=== PATIENT | female | born 1950 | race Caucasian/White ===

== ENCOUNTER 2017-06-01 10:35 | Outpatient (CLI) | payer MEDICARE, BC | END 2017-06-01 10:36 | disposition home or self-care (01) | LOC: BICMAMMO 10:35 | PROVIDERS: ATTEND Family Medicine | DX: Z12.31 Encounter for screening mammogram for malignant neoplasm of breast (principal); Z80.3 Family history of malignant neoplasm of breast | CPT/HCPCS: 77063; 77067 ==

== ENCOUNTER 2018-06-02 12:08 | Outpatient (CLI) | payer MEDICARE, BC ==
--- NOTE | 2018-06-02 15:35 | MMO ---
Bilateral MAMMO Bilat Screen [facility]LLIE. CLINICAL HISTORY: Patient is 67 years old and is seen for screening. The patient has the following family history of breast cancer: maternal aunt. The patient has no personal history of cancer. VIEWS: The views performed were: bilateral craniocaudal with tomosynthesis and bilateral mediolateral oblique with tomosynthesis. FILMS COMPARED: The present examination has been compared to prior imaging studies performed at [facility] on 10/16/2000, 10/20/2001, 10/21/2002, 10/23/2003, 10/29/2004, 11/04/2005, 11/05/2006, 11/10/2007, 11/10/2008, 11/14/2009, 11/27/2010, 12/01/2011, 12/01/2012, 02/11/2016 and 06/01/2017. MAMMOGRAM FINDINGS: There are scattered fibroglandular densities. Finding 1: There are vascular calcifications seen in both breasts. Finding 2: There are benign appearing calcifications seen in both breasts. There are no suspicious masses, calcifications or areas of architectural distortion. IMPRESSION: ALL ABOVE FINDINGS ARE BENIGN. A ROUTINE FOLLOW-UP MAMMOGRAM IN 1 YEAR IS RECOMMENDED. THE RESULTS OF THIS EXAM WERE SENT TO THE PATIENT. ACR BI-RADS Category 2 - Benign finding MAMMOGRAPHY NOTE: 1. A negative mammogram report should not delay a biopsy if a dominant of clinically suspicious mass is present. 2. Approximately 10% to 15% of breast cancers are not detected by mammography. 3. Adenosis and dense breasts may obscure an underlying neoplasm.
== END 2018-06-02 12:09 | disposition home or self-care (01) ==
LOC: BICMAMMO 12:08
PROVIDERS: ATTEND Family Medicine
DX: Z12.31 Encounter for screening mammogram for malignant neoplasm of breast (principal); Z80.3 Family history of malignant neoplasm of breast
CPT/HCPCS: 77063; 77067

== ENCOUNTER 2018-12-14 12:24 | Day surgery (SDC) | payer MEDICARE, BC ==
[2018-12-14] MEDS ORDERED: Sodium Bicarbonate 2.5 MEQ/5 ML VIAL ONE (12:58)
[2018-12-14] MEDS ORDERED: Lidocaine 1% PF 5 ML VIAL ONE (13:43)
--- NOTE | 2018-12-14 14:47 | ULT ---
Ultrasound-guided thyroid fine-needle aspiration: 12/14/2018 HISTORY: Dominant solid nodule within the inferior aspect of the left lobe FINDINGS: Informed consent obtained prior to the procedure. Preprocedural imaging demonstrates a hete rogeneous solid 1.6 x 1.3 x 1.5 cm nodule within the inferior aspect of the left lobe. Skin overlying the nodule was prepped and draped in normal sterile fashion and anesthetized with 1% b uffered lidocaine. With direct sonographic guidance, 4 fine-needle aspirations were obtained of the nodule. Obtained asp irates were given to the pathology personnel at the bedside. The patient tolerated the procedure well. IMPRESSION: Successful fine-needle aspiration of left thyroid nodule as above.
== END 2018-12-14 14:10 | disposition home or self-care (01) ==
LOC: ULT 12:24
PROVIDERS: ATTEND Specialist
DX: E04.1 Nontoxic single thyroid nodule (principal); I10 Essential (primary) hypertension; E11.9 Type 2 diabetes mellitus without complications; F41.9 Anxiety disorder, unspecified; F32.9 Major depressive disorder, single episode, unspecified; E78.5 Hyperlipidemia, unspecified; Z79.82 Long term (current) use of aspirin; Z79.84 Long term (current) use of oral hypoglycemic drugs; Z79.899 Other long term (current) drug therapy; Z86.73 Personal history of transient ischemic attack (TIA), and cerebral infarction without residual deficits; Z88.1 Allergy status to other antibiotic agents; Z91.048 Other nonmedicinal substance allergy status
CPT/HCPCS: 60100; 76942; 88173; J2001

== ENCOUNTER 2019-06-09 14:06 | Outpatient (CLI) | payer MEDICARE, BC ==
--- NOTE | 2019-06-09 15:06 | MMO ---
Bilateral MAMMO Bilat Screen [facility]. CLINICAL HISTORY: Patient is 68 years old and is seen for screening. The patient has the following family history of breast cancer: maternal aunt. The patient has no personal history of cancer. VIEWS: The views performed were: bilateral craniocaudal with tomosynthesis and bilateral mediolateral oblique with tomosynthesis. FILMS COMPARED: The present examination has been compared to prior imaging studies performed at [facility] on 02/11/2016, 06/01/2017 and 06/02/2018. This study has been interpreted with the assistance of computer-aided detection. MAMMOGRAM FINDINGS: There are scattered fibroglandular densities. Benign calcifications are noted bilaterally. There is a new nodular density in the right upper inner breast In the left breast, there are no suspicious masses, calcifications or areas of architectural distortion. IMPRESSION: FINDING IN THE RIGHT BREAST REQUIRES ADDITIONAL EVALUATION. SPOT COMPRESSION IS RECOMMENDED. AN ULTRASOUND EXAM IS RECOMMENDED. ADDITIONAL IMAGING. THE RESULTS OF THIS EXAM WERE SENT TO THE PATIENT. ACR BI-RADS Category 0 - Incomplete: Need additional imaging evaluation. [facility] will notify the patient of the need for additional imaging services. MAMMOGRAPHY NOTE: 1. A negative mammogram report should not delay a biopsy if a dominant of clinically suspicious mass is present. 2. Approximately 10% to 15% of breast cancers are not detected by mammography. 3. Adenosis and dense breasts may obscure an underlying neoplasm. Reported by: PARAG JENNINGS MD Electonically Signed: [id number]
== END 2019-06-09 14:07 | disposition home or self-care (01) ==
LOC: BICMAMMO 14:06
PROVIDERS: ATTEND Family Medicine
DX: Z12.31 Encounter for screening mammogram for malignant neoplasm of breast (principal); Z80.3 Family history of malignant neoplasm of breast
CPT/HCPCS: 77063; 77067

== ENCOUNTER 2019-06-13 10:05 | Outpatient (CLI) | payer MEDICARE, BC ==
--- NOTE | 2019-06-13 11:25 | MMO ---
Right Breast MAMMO Unilat Diag [facility]DI RT+ELLIE. CLINICAL HISTORY: Patient is 68 years old and is seen for diagnostic exam. The patient has the following family history of breast cancer: maternal aunt. The patient has no personal history of cancer. VIEWS: The views performed were: right craniocaudal with tomosynthesis; right mediolateral oblique with tomosynthesis; and right mediolateral with tomosynthesis. FILMS COMPARED: The present examination has been compared to prior imaging studies performed at [facility] on 06/01/2017, 06/02/2018, 06/09/2019 and 06/13/2019. This study has been interpreted with the assistance of computer-aided detection. MAMMOGRAM FINDINGS: There are scattered fibroglandular densities. Finding 1: There is an irregular mass measuring 6 millimeters seen in the middle region of the right breast at 12 o'clock. Finding 2: There is an irregular mass measuring 5 millimeters seen in the right breast at 1 o'clock. IMPRESSION: FINDING 1: MASS IN THE MIDDLE REGION OF THE RIGHT BREAST AT 12 O'CLOCK IS SUSPICIOUS. BIOPSY IS RECOMMENDED. FINDING 2: MASS IN THE RIGHT BREAST AT 1 O'CLOCK IS SUSPICIOUS. BIOPSY IS RECOMMENDED. THE RESULTS OF THIS EXAM WERE SENT TO THE PATIENT. ACR BI-RADS Category 4 - Suspicious abnormality - biopsy should be considered MAMMOGRAPHY NOTE: 1. A negative mammogram report should not delay a biopsy if a dominant of clinically suspicious mass is present. 2. Approximately 10% to 15% of breast cancers are not detected by mammography. 3. Adenosis and dense breasts may obscure an underlying neoplasm. Reported by: Valencia GONZALEZ Electonically Signed: [id number]
--- NOTE | 2019-06-13 12:37 | ULT ---
RIGHT BREAST ULTRASOUND: HISTORY: Abnormal mammogram. COMPARISON: Mammogram of 06/12/2019. FINDINGS: At the right breast 11-12 o'clock are 2 separate masses. These masses are hypoechoic without signifi cant posterior acoustic properties. These are 5-6 mm in size with some angular margins. IMPRESSION: 1. BIRADS category 4 - suspicious. Two small right breast masses 5-7 mm at 11-12 o'clock within 2 c m of each other are suspicious for malignancy. Ultrasound biopsy of both these masses is recommended . 2. The right axilla was imaged without abnormality. Findings were discussed with the patient's daughter. Also, a Stanley text was sent to the ordering pro vider. The nurse navigator was notified. CODE CR
--- NOTE | 2019-06-17 13:46 | MMO ---
Right Breast MAMMO Unilat Diag DDI RT. CLINICAL HISTORY: Patient is 68 years old and is seen for diagnostic exam. VIEWS: The views performed were: . FILMS COMPARED: The present examination has been compared to prior imaging studies performed at [facility] on 06/02/2018, 06/09/2019 and 06/13/2019. This study has been interpreted with the assistance of computer-aided detection. MAMMOGRAM FINDINGS: There are scattered fibroglandular densities. There are two nodules with associated biopsy clip seen in the right breast. IMPRESSION: NODULES IN THE RIGHT BREAST ARE CONFIRMED UTILIZING POST PROCEDURE MAMMOGRAM. THE RESULTS OF THIS EXAM WERE SENT TO THE PATIENT. MAMMOGRAPHY NOTE: 1. A negative mammogram report should not delay a biopsy if a dominant of clinically suspicious mass is present. 2. Approximately 10% to 15% of breast cancers are not detected by mammography. 3. Adenosis and dense breasts may obscure an underlying neoplasm. Reported by: CORBIN CERDA MD Electonically Signed: [id number]
== END 2019-06-13 10:06 | disposition home or self-care (01) ==
LOC: BICMAMMO 10:05
PROVIDERS: ATTEND Family Medicine
DX: N63.15 Unspecified lump in the right breast, overlapping quadrants (principal)
CPT/HCPCS: 76642; 77065; G0279

== ENCOUNTER → 2019-06-17 | Day surgery (SDC) | payer MEDICARE, BC ==
--- NOTE | 2019-06-17 15:21 | ULT ---
SONOGRAPHIC GUIDED BIOPSY RIGHT BREAST MASSES X2: 06/17/19 HISTORY: Multiple right breast masses at the superior lateral quadrant. 11 o'clock position. FINDINGS: After explaining the procedure and obtaining informed consent, the two adjacent hypoechoic masses at the superolateral aspect of the right breast were visualized. Sterile technique, buffered local anest hesia, sonographic guidance, and a lateral approach were used to carefully advance a 14 gauge biopsy needle to the more anterior and superficial hypoechoic mass. A total of two specimens were obtained. Localization clip is placed in the biopsy bed. Specimens were carefully marked as the #1 biopsy, ante rior lesion. Attention was then directed to the deeper and more posterior mass. 14 gauge needle was used to obtain two specimens. Localization clip was placed in the biopsy bed. Tissue was carefully labeled as #2 mo re posterior lesion. The patient tolerated the procedure well and was eventually dismissed in good condition. IMPRESSION: Technically successful sonographic guided biopsy of two separate right breast masses. Pathology is pe nding. POS: TPC
== END ==
LOC: BICULT 12:38
PROVIDERS: ATTEND Family Medicine
PROC: 0H9T3ZX Drainage of Right Breast, Percutaneous Approach, Diagnostic (ICD-10-PCS; principal; 2019-06-17)
DX: C50.411 Malignant neoplasm of upper-outer quadrant of right female breast (principal); Z17.1 Estrogen receptor negative status [ER-]; Z88.1 Allergy status to other antibiotic agents; Z91.048 Other nonmedicinal substance allergy status
CPT/HCPCS: 19083; 19084; 88305; 88361

== ENCOUNTER 2019-06-24 13:36 | Outpatient (CLI) | payer MEDICARE, BC ==
[2019-06-24 15:19] LABS: #Eosinphils 0.4 thou/uL (0.0-0.7); #Monocytes 0.5 thou/uL (0.11-0.59); #Neutrophils 5.5 thou/uL (1.40-6.50); %Basophils 0.6 % (0.0-1.0); %Lymphocytes 13.4 % (21.0-51.0); %Monocytes 6.5 % (0.0-10.0); %Neutrophils 73.5 % (42.0-75.0); Hemoglobin 11.6 g/dL (12.0-16.0); Mean Corpuscular HGB CONC 31.6 g/dL (32.0-36.0); Mean Corpuscular Hemoglobin 26.3 pg (27.0-31.0); Mean Corpuscular Volume 83.2 fL (78.0-98.0); Mean Platelet Volume 8.9 fL (7.4-10.4); Platelet Count 229 thou/uL (130-400); RBC Distribution Width 15.6 % (11.5-14.5); Red Blood Cell (RBC) Count 4.43 mill/uL (4.20-5.40); White Blood Cell (WBC) Count 7.5 thou/uL (4.8-10.8)
[2019-06-24 15:36] LABS: Anion Gap 15 mmol/L (10-20); BUN (Urea Nitrogen) 41 mg/dL (9.8-20.1); Calc. Creatinine Clearance 0 mL/min (70-130); Carbon Dioxide 23 mmol/L (23-31); Chloride 106 mmol/L (98-107); Estimated GFR-MDRD 43; Glucose 212 mg/dL (80-115); Potassium 5.6 mmol/L (3.5-5.1); Sodium 138 mmol/L (136-145)
--- NOTE | 2019-06-24 15:51 | RAD ---
CHEST 2 VIEWS: HISTORY: Preoperative evaluation. FINDINGS: Heart size is minimally enlarged. Increased bronchovascular markings bilaterally. Small focus of li near density in the left costophrenic angle, evidence for some chronic change. No confluent pneumoni a, overt edema, or pleural effusion. IMPRESSION: No acute intrathoracic disease. Borderline to mild cardiomegaly. Atherosclerosis of the aorta. POS: RRE
== END 2019-06-24 13:37 | disposition home or self-care (01) ==
LOC: LABBT 13:36
PROVIDERS: ATTEND Specialist
DX: Z01.818 Encounter for other preprocedural examination (principal); C50.919 Malignant neoplasm of unspecified site of unspecified female breast
CPT/HCPCS: 71046; 80048; 85025; 93005; 93010

== ENCOUNTER 2019-06-27 07:11 | Observation (INO) | payer MEDICARE, BC ==
[2019-06-24 14:24] VITALS: BMI 27.7
[2019-06-27] MEDS ORDERED: Succinylcholine Chloride 20 MG/ML 10 ml SYRINGE FS ONE (09:01)
[2019-06-27] MEDS ORDERED: diphenhydrAMINE 50 MG/ML VIAL ONE (09:01)
[2019-06-27] MEDS ORDERED: Ondansetron PF 4 MG/2 ML Vial ONE (09:01)
[2019-06-27] MEDS ORDERED: PROPOFOL 200 MG/20 ML VIAL ONE (09:01)
[2019-06-27] MEDS ORDERED: Dexamethasone 20 MG/5 ML VIAL ONE (09:01)
[2019-06-27] MEDS ORDERED: EPHEDRINE 25 MG/5 ML SYRINGE ONE ×4 (09:01→15:02)
[2019-06-27] MEDS ORDERED: Isosulfan Blue 50 MG/5 ML VIAL ONE (12:05)
[2019-06-27] MEDS ORDERED: Fentanyl 250 MCG/5 ML VIAL ONE (12:11)
--- NOTE | 2019-06-27 12:26 | NM ---
Lymphoscintigraphy right breast HISTORY: Right breast cancer. FINDINGS: After explaining the procedure and answering all questions, the periareolar skin of the rig ht breast was cleansed. Sterile technique was used to carefully injected into the subdermal tissues in 4 equal aliquots a tot al of 1 cc containing 417 uCi technetium 99m filtered sulfur colloid at the periareolar 12:00, 3:00, 6:00, and 9:00 positions. Injection sites were carefully massaged to diffuse the liquid into th e tissues. Imaging was performed. Imaging carried out to 3 hours showed no focal areas of radiotracer uptake outside of the injection s ite, with particular attention paid to the axilla and middle chest. At the request of the surgeon, patient was sent for day surgery. IMPRESSION : Nonvisualization of sentinel lymph node right breast at lymphoscintigraphy imaging carried out to 3 h ours.
[2019-06-27] MEDS ORDERED: Ketorolac Tromethamine 30 MG/ML VIAL ONE (12:35)
[2019-06-27] MEDS ORDERED: EPINEPHRINE 1 MG/10 ML-NACL IV ONE (15:00)
[2019-06-27] MEDS ORDERED: Promethazine HCl 25 MG/ML VIAL SLOW IVP PRN (15:37)
[2019-06-27] MEDS ORDERED: Ondansetron HCl/PF 4 MG/2 ML Vial IVP PRN (15:37)
[2019-06-27] MEDS ORDERED: Fentanyl 100 MCG/2 ML VIAL ONE ×2 (15:48→16:31)
[2019-06-27] MEDS ORDERED: HYDROcodone/Acetaminophen 10/325 mg Tablet PO PRN (16:18)
[2019-06-27] MEDS ORDERED: Morphine 2 MG/ML SYRINGE SLOW IVP PRN (16:18)
[2019-06-27] MEDS ORDERED: Ondansetron PF 4 MG/2 ML Vial IVP PRN (16:18)
[2019-06-27] MEDS ORDERED: hydrALAZINE 20 MG/ML VIAL SLOW IVP PRN (16:18)
[2019-06-27] MEDS ORDERED: Furosemide 40 MG TAB PO PRN (16:18)
[2019-06-27] MEDS ORDERED: Dextrose 5% in Water 1,000 ML IV PRN (16:18)
[2019-06-27] MEDS ORDERED: Dextrose 50% Abboject 50 ML SYRINGE SLOW IVP PRN (16:18)
[2019-06-27] MEDS ORDERED: Insulin Regular 300 UNITS/3 ML VIAL SC PRN (16:18)
[2019-06-27] MEDS: metFORMIN 500 MG TAB PO SCH (20:29)
[2019-06-27] MEDS: Sodium Chloride 0.9% 1,000 ML IV SCH (20:31)
[2019-06-27] MEDS: Famotidine 20 MG TAB PO SCH (20:32)
[2019-06-27] MEDS: Metoprolol Tartrate 50 MG TAB PO SCH (20:33)
[2019-06-27] MEDS: Isosorbide Dinitrate 20 MG TAB PO SCH (20:33)
--- NOTE | 2019-06-27 20:33 | OP ---
DATE OF PROCEDURE: 06/27/2019 PREOPERATIVE DIAGNOSIS: Right breast cancer. POSTOPERATIVE DIAGNOSIS: Right breast cancer. PROCEDURES PERFORMED: Right simple mastectomy with right axillary sentinel lymph node biopsy. ANESTHESIA: General endotracheal. INDICATIONS: The patient is a 68-year-old white female. 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 She is recently diagnosed with a new cancer in the upper outer quadrant of her right breast. After discussing options, she has elected to proceed with a right mastectomy so as to avoid postoperative radiation therapy. She underwent preoperative lymphoscintigraphy, which revealed no definite evidence of sentinel lymph nodes. DESCRIPTION OF OPERATION: Informed consent was obtained. The patient was taken to the operating room, where general endotracheal anesthesia was obtained with the patient in supine position. The right breast was infiltrated with 3 mL of isosulfan blue in the periareolar subdermal tissue and the breast was massaged for 5 minutes. The breast and axilla were then prepped with ChloraPrep and draped in sterile fashion. An elliptical incision was created across the right breast. Dissection was carried through skin and subcutaneous tissue, and hemostasis was maintained using the plasma blade. The plasma blade was utilized for all incisions and all dissection and all hemostasis. Attention was turned to the axilla. Flaps were raised superiorly on the lateral aspect of the incision. The Neoprobe was utilized as the dissection was carried out to the axilla. I was able to clearly identify 2 separate radioactive lymph nodes. As these were approached, they both had some evidence of blue dye within them as well. These were dissected circumferentially and all investing lymphatics were divided between clamps and 2-0 silk ties. The lymph nodes were passed off the field for touch prep. The intraoperative evaluation revealed no definite malignancy within either lymph node. Meticulous hemostasis was obtained within the wound. Attention was then turned to the mastectomy. Sue clamps were placed on the skin edges and used to elevate the cutaneous flaps. Careful dissection was carried out to mobilize the skin flaps superiorly, inferiorly, and medially. Care was taken to avoid thinning the flaps excessively. The breast was then mobilized off the chest wall in a medial to lateral fashion again using the plasma blade. At the lateral aspect of the pectoralis, the tissue was divided as an axillary dissection was not necessary. The specimen was tagged for orientation and passed off the field. Meticulous hemostasis was again obtained. The wound was irrigated with sterile water. A #19 round fluted drain was placed within the wound and brought out laterally and inferiorly. It was secured at skin exit site with 3-0 nylon suture. The skin edges were carefully tailored to avoid any unnecessary redundant tissue. Dog-ear correction was created laterally. The wound was then closed in layers using 3-0 Vicryl to close the deep layers and skin melba to approximate the skin edges. Xeroform was placed over the skin incisions. Fluff gauze dressing followed by a Romero wrap was then placed. A Tegaderm dressing was placed over the drain exit site. There were no complications. Blood loss had been minimal. The patient tolerated the procedure well and was taken to recovery room in stable condition. Job ID: [id number]
[2019-06-27] MEDS ORDERED: Baclofen 10 MG TAB PO PRN (21:00)
[2019-06-27] MEDS ORDERED: Amlodipine 10 MG TAB PO SCH (21:00)
[2019-06-27] MEDS ORDERED: cloNIDine 0.1 MG TAB PO SCH (21:00)
[2019-06-27] MEDS ORDERED: Atorvastatin Calcium 10 MG TAB PO SCH (21:00)
[2019-06-28 05:09] LABS: #Eosinphils 0.1 thou/uL (0.0-0.7); #Monocytes 0.8 thou/uL (0.11-0.59); #Neutrophils 8.2 thou/uL (1.40-6.50); %Basophils 0.4 % (0.0-1.0); %Eosinophils 0.5 % (0.0-10.0); %Lymphocytes 9.5 % (21.0-51.0); %Monocytes 8.1 % (0.0-10.0); %Neutrophils 81.5 % (42.0-75.0); Hemoglobin 10.1 g/dL (12.0-16.0); Mean Corpuscular HGB CONC 32.4 g/dL (32.0-36.0); Mean Corpuscular Hemoglobin 27.3 pg (27.0-31.0); Mean Platelet Volume 8.9 fL (7.4-10.4); Platelet Count 201 thou/uL (130-400); RBC Distribution Width 15.3 % (11.5-14.5); Red Blood Cell (RBC) Count 3.72 mill/uL (4.20-5.40); White Blood Cell (WBC) Count 10.1 thou/uL (4.8-10.8)
[2019-06-28] MEDS ORDERED: Potassium Chloride 20 MEQ TAB PO SCH (08:00)
[2019-06-28] MEDS: metFORMIN 500 MG TAB PO SCH (08:40)
[2019-06-28] MEDS: Isosorbide Dinitrate 20 MG TAB PO SCH (08:41)
[2019-06-28] MEDS: Famotidine 20 MG TAB PO SCH (08:41)
[2019-06-28] MEDS: Metoprolol Tartrate 50 MG TAB PO SCH (08:42)
[2019-06-28] MEDS: Sodium Chloride 0.9% 1,000 ML IV SCH (08:49)
[2019-06-28] MEDS ORDERED: Aspirin 325 MG TAB PO SCH (09:00)
[2019-06-28] MEDS ORDERED: Losartan 25 MG TAB PO SCH (09:00)
[2019-06-28] MEDS ORDERED: Alogliptin 25 MG TAB PO SCH (09:00)
[2019-06-28] MEDS ORDERED: Empagliflozin 25 MG TAB PO SCH (09:00)
[2019-06-28] MEDS ORDERED: Docusate 100 MG CAP PO SCH (09:00)
[2019-06-28 11:37] VITALS: BP 125/61; TEMP 97.3
[2019-06-28] MEDS ORDERED: Prevnar 13-Val Conj/PF 0.5 ML SYRINGE IM ONE (21:00)
== END 2019-06-28 12:45 | disposition home or self-care (01) ==
LOC: SDC 07:11 → SURG A 17:21
PROVIDERS: ADMIT Specialist; ATTEND Specialist
PROC: 0HTT0ZZ Resection of Right Breast, Open Approach (ICD-10-PCS; principal; 2019-06-27)
PROC: 07B60ZX Excision of Left Axillary Lymphatic, Open Approach, Diagnostic (ICD-10-PCS; 2019-06-27)
DX: C50.411 Malignant neoplasm of upper-outer quadrant of right female breast (principal); E11.9 Type 2 diabetes mellitus without complications; E78.5 Hyperlipidemia, unspecified; F32.9 Major depressive disorder, single episode, unspecified; I69.320 Aphasia following cerebral infarction; I69.351 Hemiplegia and hemiparesis following cerebral infarction affecting right dominant side; Z17.1 Estrogen receptor negative status [ER-]; Z79.82 Long term (current) use of aspirin; Z79.84 Long term (current) use of oral hypoglycemic drugs; Z79.899 Other long term (current) drug therapy; Z88.1 Allergy status to other antibiotic agents; Z91.048 Other nonmedicinal substance allergy status
CPT/HCPCS: 19303; 38525; 38900; 78195; 82962 ×2; 85025; 88307; 88309; 88333; 88334; 88342; 96360; 96361 ×2; A9541; G0378 ×2; Q9968; 36415; 36416; J0690; J1100; J1200; J1815; J1885; J2405; J2704; J3010

== ENCOUNTER 2019-07-04 12:11 | Outpatient (CLI) | payer MEDICARE, BC ==
[2019-07-04 14:24] LABS: #Eosinphils 0.8 thou/uL (0.0-0.7); #Lymphocytes 1.4 thou/uL (1.20-3.40); #Monocytes 0.9 thou/uL (0.11-0.59); #Neutrophils 6.3 thou/uL (1.40-6.50); %Basophils 0.3 % (0.0-1.0); %Eosinophils 8.1 % (0.0-10.0); %Lymphocytes 14.4 % (21.0-51.0); %Monocytes 9.4 % (0.0-10.0); %Neutrophils 67.7 % (42.0-75.0); Hemoglobin 8.9 g/dL (12.0-16.0); Mean Corpuscular HGB CONC 32.3 g/dL (32.0-36.0); Mean Corpuscular Hemoglobin 27.3 pg (27.0-31.0); Mean Corpuscular Volume 84.5 fL (78.0-98.0); Mean Platelet Volume 9.1 fL (7.4-10.4); Platelet Count 215 thou/uL (130-400); RBC Distribution Width 15.4 % (11.5-14.5); Red Blood Cell (RBC) Count 3.25 mill/uL (4.20-5.40); White Blood Cell (WBC) Count 9.3 thou/uL (4.8-10.8)
== END 2019-07-04 12:12 | disposition home or self-care (01) ==
LOC: LABBT 12:11
PROVIDERS: ATTEND Specialist
DX: Z01.812 Encounter for preprocedural laboratory examination (principal); C50.919 Malignant neoplasm of unspecified site of unspecified female breast; N64.89 Other specified disorders of breast
CPT/HCPCS: 85025

== ENCOUNTER 2019-07-05 06:45 | Day surgery (SDC) | payer MEDICARE, BC ==
[2019-07-04 12:38] VITALS: BMI 34.6
[2019-07-05] MEDS ORDERED: Fentanyl 100 MCG/2 ML VIAL ONE (08:28)
[2019-07-05] MEDS ORDERED: Midazolam HCl 2 mg/2 ml Vial ONE (08:28)
[2019-07-05] MEDS ORDERED: Lidocaine 1% w/Epinephrine 1:100K 20 ML VIAL ONE (08:36)
[2019-07-05] MEDS ORDERED: Bupivacaine 0.25% HCL 30 ML VIAL ONE (08:36)
[2019-07-05] MEDS ORDERED: Ondansetron PF 4 MG/2 ML Vial ONE ×2 (10:16→12:35)
[2019-07-05] MEDS ORDERED: Lidocaine 1% PF 5 ML VIAL ONE (12:35)
[2019-07-05] MEDS ORDERED: Succinylcholine Chloride 20 MG/ML 10 ml SYRINGE FS ONE (12:35)
[2019-07-05] MEDS ORDERED: PROPOFOL 200 MG/20 ML VIAL ONE (12:35)
[2019-07-05] MEDS ORDERED: PHENYLEPHRINE-NS 100 MCG/ML 10 ML SYRINGE ONE (12:35)
--- NOTE | 2019-07-06 11:56 | OP ---
DATE OF PROCEDURE: 07/05/2019 PREOPERATIVE DIAGNOSIS: Right mastectomy wound hematoma. POSTOPERATIVE DIAGNOSIS: Right mastectomy wound hematoma. PROCEDURES PERFORMED: Right mastectomy wound exploration, hematoma evacuation. ANESTHESIA: General endotracheal. INDICATIONS: The patient is a 68-year-old white female, who underwent right mastectomy about a week previously. At her followup visit, she was noted to have significant swelling of the right mastectomy wound with sanguinous drainage from the drain. She had examination that was consistent with a wound hematoma and I recommended wound exploration and hematoma evacuation. DESCRIPTION OF OPERATION: Informed consent was obtained. The patient was taken to the operating room, where general anesthesia was obtained with the patient in supine position. Right chest was prepped with ChloraPrep and draped in sterile fashion. Her drain was removed before she was prepped. About five of the melba from the center of her wound were removed after local anesthetic was infiltrated using 1% lidocaine with epinephrine mixed with Marcaine. The underlying Vicryl suture was incised and opened for a length of about 2 inches in the center of the wound. The ends of the Vicryl suture were grasped with hemostats. A moderate volume of hematoma was then removed from the wound using digital dissection. There was no evidence of purulence or inflammatory process. After the bulk of the hematoma was removed, the wound was flushed with peroxide and again manually agitated. I finally irrigated the wound with saline. The wound was then thoroughly examined. There was no evidence of any further bleeding. A new #19 round fluted drain was obtained and passed out through the same drain site laterally and inferiorly and secured with a 3-0 nylon suture. The wound was closed deeply with 3-0 Vicryl and melba were applied to the skin edges. Gauze dressing and Ever wrap were placed circumferentially. There were no complications. Blood loss was essentially none. The patient tolerated the procedure well and was taken to recovery room in stable condition. Job ID: [id number]
== END 2019-07-05 12:44 | disposition home or self-care (01) ==
LOC: SDC 06:45
PROVIDERS: ATTEND Specialist
PROC: 0H9T00Z Drainage of Right Breast with Drainage Device, Open Approach (ICD-10-PCS; principal; 2019-07-05)
DX: M96.841 Postprocedural hematoma of a musculoskeletal structure following other procedure (principal); M19.90 Unspecified osteoarthritis, unspecified site; E11.9 Type 2 diabetes mellitus without complications; I10 Essential (primary) hypertension; E78.5 Hyperlipidemia, unspecified; I48.91 Unspecified atrial fibrillation; F41.9 Anxiety disorder, unspecified; F32.9 Major depressive disorder, single episode, unspecified; I69.320 Aphasia following cerebral infarction; I69.351 Hemiplegia and hemiparesis following cerebral infarction affecting right dominant side; Z79.82 Long term (current) use of aspirin; Z79.84 Long term (current) use of oral hypoglycemic drugs; Z79.899 Other long term (current) drug therapy; Z88.1 Allergy status to other antibiotic agents; Z91.048 Other nonmedicinal substance allergy status; Z90.11 Acquired absence of right breast and nipple
CPT/HCPCS: 10140; J0690; J2001; J2405; J2704; J3010; J2250; S0020

== ENCOUNTER 2020-07-02 13:29 | Outpatient (CLI) | payer MEDICARE, BC | END 2020-07-02 13:30 | disposition home or self-care (01) | LOC: BICMAMMO 13:29 | PROVIDERS: ATTEND Specialist | DX: C50.919 Malignant neoplasm of unspecified site of unspecified female breast (principal) | CPT/HCPCS: 77065; G0279 ==

== ENCOUNTER 2022-07-15 13:04 | Outpatient (CLI) | payer MEDICARE, BC | END 2022-07-15 13:05 | disposition home or self-care (01) | LOC: BICMAMMO 13:04 | PROVIDERS: ATTEND Specialist | DX: C50.919 Malignant neoplasm of unspecified site of unspecified female breast (principal); Z80.3 Family history of malignant neoplasm of breast | CPT/HCPCS: 77065; G0279 ==

== ENCOUNTER 2023-04-05 15:38 | Inpatient (IN) | payer BC, MEDICARE ==
[2023-04-05 16:03] LABS: #Eosinphils 0.1 thou/uL (0.0-0.7); #Monocytes 0.9 thou/uL (0.11-0.59); #Neutrophils 9.6 thou/uL (1.40-6.50); %Basophils 0.3 % (0.0-1.0); %Eosinophils 0.8 % (0.0-10.0); %Lymphocytes 5.3 % (21.0-51.0); %Monocytes 7.6 % (0.0-10.0); Hematocrit 32.5 % (36.0-47.0); Hemoglobin 10.2 g/dL (12.0-16.0); Mean Corpuscular HGB CONC 31.4 g/dL (32.0-36.0); Mean Corpuscular Hemoglobin 26.7 pg (27.0-31.0); Mean Corpuscular Volume 85.1 fl (78.0-98.0); Platelet Count 366 10x3/uL (130-400); RBC Distribution Width 16.4 % (11.5-14.5); Red Blood Cell (RBC) Count 3.82 mill/uL (4.20-5.40); White Blood Cell (WBC) Count 11.4 10x3/uL (4.8-10.8)
[2023-04-05 16:21] LABS: ALT (SGPT) 14 U/L (8-55); AST (SGOT) 17 U/L (5-34); Albumin 3.4 g/dL (3.4-4.8); Alkaline Phosphatase 70 U/L (40-110); Anion Gap 23 mmol/L (10-20); BUN (Urea Nitrogen) 87 mg/dL (9.8-20.1); Bilirubin, Total 0.3 mg/dL (0.2-1.2); Calc. Creatinine Clearance 0 mL/min (70-130); Calcium 8.9 mg/dL (7.8-10.44); Carbon Dioxide 11 mmol/L (23-31); Chloride 107 mmol/L (98-107); Estimated GFR 9; Globulin 3.6 g/dL (2.4-3.5); Glucose 115 mg/dL (83-110); Sodium 135 mmol/L (136-145)
[2023-04-05 16:31] LABS: Critical Call Chemistry NUR.DD11 @1631; Potassium 6.1 mmol/L (3.5-5.1)
[2023-04-05] MEDS ORDERED: Dextrose 10% in Water 250 ML ONE (16:51)
[2023-04-05] MEDS ORDERED: Insulin Regular 300 UNITS/3 ML VIAL ONE (16:52)
[2023-04-05] MEDS ORDERED: Sodium Bicarb 50 mEq/50 ML VIAL ONE (16:52)
[2023-04-05] MEDS ORDERED: CALCIUM GLUC 1 GM (50 ML) BAG ONE (16:52)
[2023-04-05] MEDS ORDERED: Dextrose 50% Abboject 50 ML SYRINGE SLOW IVP SCH (17:00)
[2023-04-05 18:17] LABS: Actual Bicarbonate (HCO3a) 16.5 mEq/L (22-28); Analyzer IN Cardio ER; Base Excess (BEa) -8.1 mEq/L (-2.0 to +3.0); CO2 Tension 30.8 mmHg (35.0-45.0); Calcium, Ionized (arterial) 1.16 mmol/L (1.12-1.30); Carboxyhemoglobin (COHb) 0.3 gm% (0.0-3.0); Hematocrit-ABG 31 % (36.0-47.0); Hemoglobin (Hb) 10.4 g/dL (12.0-16.0); Potassium - ABG Lab 4.62 mmol/L (3.70-5.30); pH, Arterial 7.348 (7.35-7.45)
[2023-04-05 18:22] LABS: O2 Tension (PaO2), arterial 48.4 mmHg (> 70.0)
[2023-04-05 18:23] LABS: Puncture Site RR
[2023-04-05] MEDS ORDERED: Sodium Bicarbonate 150 MEQ in Dextrose 5% in Water 1,000 ML IV SCH (20:15)
[2023-04-05 20:54] LABS: Anion Gap 20 mmol/L (10-20); BUN (Urea Nitrogen) 84 mg/dL (9.8-20.1); Calc. Creatinine Clearance 0 mL/min (70-130); Calcium 8.4 mg/dL (7.8-10.44); Carbon Dioxide 15 mmol/L (23-31); Chloride 111 mmol/L (98-107); Estimated GFR 11; Glucose 67 mg/dL (83-110); Sodium 141 mmol/L (136-145)
[2023-04-05] MEDS ORDERED: Ondansetron ODT 4 MG TAB PO PRN (21:43)
[2023-04-05] MEDS ORDERED: Ondansetron PF 4 MG/2 ML Vial IVP PRN (21:43)
[2023-04-05] MEDS ORDERED: Acetaminophen 650 MG Suppository PR PRN (21:43)
[2023-04-05] MEDS ORDERED: Dextrose 50% Abboject 50 ML SYRINGE SLOW IVP PRN (22:51)
[2023-04-05] MEDS ORDERED: Dextrose 5% in Water 1,000 ML IV PRN (22:51)
[2023-04-05] MEDS ORDERED: Glucagon 1 MG/ML KIT IM PRN (22:51)
[2023-04-06 06:26] LABS: #Eosinphils 0.1 thou/uL (0.0-0.7); #Monocytes 0.6 thou/uL (0.11-0.59); #Neutrophils 7.7 thou/uL (1.40-6.50); %Basophils 0.3 % (0.0-1.0); %Eosinophils 1.4 % (0.0-10.0); %Monocytes 6.7 % (0.0-10.0); Hematocrit 30.2 % (36.0-47.0); Hemoglobin 9.9 g/dL (12.0-16.0); Mean Corpuscular HGB CONC 32.8 g/dL (32.0-36.0); Mean Corpuscular Hemoglobin 26.8 pg (27.0-31.0); Mean Platelet Volume 10.1 fL (7.4-10.4); Platelet Count 320 10x3/uL (130-400); RBC Distribution Width 16.1 % (11.5-14.5); Red Blood Cell (RBC) Count 3.69 mill/uL (4.20-5.40); White Blood Cell (WBC) Count 9.2 10x3/uL (4.8-10.8)
[2023-04-06] MEDS ORDERED: Furosemide 40 MG (4 mL) VIAL SLOW IVP SCH ×2 (06:30→12:45)
[2023-04-06 06:34] LABS: Mean Corpuscular Volume 81.8 fl (78.0-98.0)
[2023-04-06 06:56] LABS: Anion Gap 21 mmol/L (10-20); BUN (Urea Nitrogen) 77 mg/dL (9.8-20.1); Calc. Creatinine Clearance 15 mL/min (70-130); Calcium 8.2 mg/dL (7.8-10.44); Carbon Dioxide 19 mmol/L (23-31); Chloride 106 mmol/L (98-107); Estimated GFR 12; Glucose 204 mg/dL (83-110); Potassium 4.6 mmol/L (3.5-5.1); Sodium 141 mmol/L (136-145)
[2023-04-06] MEDS ORDERED: Morphine 4 MG/ML VIAL ONE (07:02)
[2023-04-06] MEDS ORDERED: Morphine 2 MG/ML VIAL SLOW IVP SCH (07:30)
[2023-04-06] MEDS ORDERED: Enoxaparin 30 MG (0.3 mL) SYRINGE SC SCH (09:00)
[2023-04-06] MEDS ORDERED: Furosemide 100 MG (10 mL) VIAL SLOW IVP SCH (09:45)
[2023-04-06] MEDS ORDERED: Polyethylene Glycol 3350 17 GM Packet PO PRN (18:12)
[2023-04-06] MEDS: Heparin 5,000 UNITS/ML VIAL SC SCH (20:17)
[2023-04-06] MEDS: Metoprolol Tartrate 50 MG TAB PO SCH (20:17)
[2023-04-06] MEDS: Atorvastatin Calcium 10 MG TAB PO SCH (20:17)
[2023-04-06] MEDS: Cholecalciferol 1,000 UNITS (25 MCG) TAB PO SCH (20:17)
[2023-04-06] MEDS: HumaLOG 300 UNITS/3 ML VIAL SC PRN (21:42)
[2023-04-07] MEDS: Baclofen 10 MG TAB PO PRN ×2 (01:07→20:09)
[2023-04-07 05:47] LABS: #Eosinphils 0.1 thou/uL (0.0-0.7); #Neutrophils 6.5 thou/uL (1.40-6.50); %Basophils 0.5 % (0.0-1.0); %Eosinophils 0.8 % (0.0-10.0); %Lymphocytes 10.6 % (21.0-51.0); %Monocytes 11.2 % (0.0-10.0); %Neutrophils 75.7 % (42.0-75.0); Hematocrit 29.3 % (36.0-47.0); Hemoglobin 9.4 g/dL (12.0-16.0); Mean Corpuscular HGB CONC 32.1 g/dL (32.0-36.0); Mean Corpuscular Hemoglobin 26.4 pg (27.0-31.0); Mean Corpuscular Volume 82.3 fl (78.0-98.0); Mean Platelet Volume 10.4 fL (7.4-10.4); Platelet Count 274 10x3/uL (130-400); RBC Distribution Width 16.1 % (11.5-14.5); Red Blood Cell (RBC) Count 3.56 mill/uL (4.20-5.40); White Blood Cell (WBC) Count 8.5 10x3/uL (4.8-10.8)
[2023-04-07] MEDS: HumaLOG 300 UNITS/3 ML VIAL SC PRN ×4 (06:08→21:35)
[2023-04-07 06:18] LABS: Anion Gap 18 mmol/L (10-20); BUN (Urea Nitrogen) 76 mg/dL (9.8-20.1); Calc. Creatinine Clearance 16 mL/min (70-130); Calcium 8.2 mg/dL (7.8-10.44); Carbon Dioxide 22 mmol/L (23-31); Chloride 105 mmol/L (98-107); Estimated GFR 14; Glucose 207 mg/dL (83-110); Potassium 4.6 mmol/L (3.5-5.1); Sodium 140 mmol/L (136-145)
[2023-04-07] MEDS: Sertraline 100 MG TAB PO SCH (08:05)
[2023-04-07] MEDS: Metoprolol Tartrate 50 MG TAB PO SCH ×2 (08:05→20:09)
[2023-04-07] MEDS: Cholecalciferol 1,000 UNITS (25 MCG) TAB PO SCH ×2 (08:05→20:09)
[2023-04-07] MEDS: Heparin 5,000 UNITS/ML VIAL SC SCH ×2 (08:05→20:09)
[2023-04-07] MEDS: Ferrous Sulfate 325 MG TAB PO SCH (08:05)
[2023-04-07] MEDS: Aspirin 325 MG TAB PO SCH (08:05)
[2023-04-07] MEDS: Docusate 100 MG CAP PO SCH (08:05)
[2023-04-07] MEDS: Isosorbide Dinitrate 20 MG TAB PO SCH (08:05)
[2023-04-07] MEDS ORDERED: Furosemide 40 MG (4 mL) VIAL SLOW IVP SCH (08:25)
[2023-04-07] MEDS: Atorvastatin Calcium 10 MG TAB PO SCH (20:09)
[2023-04-08] MEDS: HumaLOG 300 UNITS/3 ML VIAL SC PRN ×4 (05:38→20:52)
[2023-04-08 06:00] LABS: #Basophils 0.1 thou/uL (0.0-0.2); #Eosinphils 0.3 thou/uL (0.0-0.7); #Monocytes 0.9 thou/uL (0.11-0.59); #Neutrophils 9.7 thou/uL (1.40-6.50); %Basophils 0.6 % (0.0-1.0); %Eosinophils 2.4 % (0.0-10.0); %Lymphocytes 6.5 % (21.0-51.0); %Monocytes 7.2 % (0.0-10.0); %Neutrophils 81.2 % (42.0-75.0); Hematocrit 32.3 % (36.0-47.0); Hemoglobin 10.2 g/dL (12.0-16.0); Mean Corpuscular HGB CONC 31.6 g/dL (32.0-36.0); Mean Corpuscular Hemoglobin 26.5 pg (27.0-31.0); Mean Corpuscular Volume 83.9 fl (78.0-98.0); Mean Platelet Volume 10.5 fL (7.4-10.4); Platelet Count 318 10x3/uL (130-400); RBC Distribution Width 16.2 % (11.5-14.5); Red Blood Cell (RBC) Count 3.85 mill/uL (4.20-5.40)
[2023-04-08 06:30] LABS: Phosphorus 3.4 mg/dL (2.3-4.7)
[2023-04-08 06:31] LABS: Anion Gap 20 mmol/L (10-20); BUN (Urea Nitrogen) 75 mg/dL (9.8-20.1); Calc. Creatinine Clearance 22 mL/min (70-130); Calcium 8.8 mg/dL (7.8-10.44); Carbon Dioxide 23 mmol/L (23-31); Chloride 103 mmol/L (98-107); Estimated GFR 20; Glucose 182 mg/dL (83-110); Magnesium 1.5 mg/dL (1.6-2.6); Potassium 4.5 mmol/L (3.5-5.1); Sodium 141 mmol/L (136-145)
[2023-04-08] MEDS: Acetaminophen 325 MG TAB PO PRN (06:35)
[2023-04-08] MEDS: Metoprolol Tartrate 50 MG TAB PO SCH ×2 (07:20→20:37)
[2023-04-08] MEDS: Ferrous Sulfate 325 MG TAB PO SCH (08:35)
[2023-04-08] MEDS: Aspirin 325 MG TAB PO SCH (08:35)
[2023-04-08] MEDS: Docusate 100 MG CAP PO SCH (08:35)
[2023-04-08] MEDS: Heparin 5,000 UNITS/ML VIAL SC SCH ×2 (08:35→20:36)
[2023-04-08] MEDS: Sertraline 100 MG TAB PO SCH (08:35)
[2023-04-08] MEDS: Cholecalciferol 1,000 UNITS (25 MCG) TAB PO SCH ×2 (08:35→20:37)
[2023-04-08] MEDS: Isosorbide Dinitrate 20 MG TAB PO SCH (08:35)
[2023-04-08] MEDS ORDERED: Furosemide 20 MG (2 mL) VIAL SLOW IVP SCH (09:00)
[2023-04-08] MEDS ORDERED: Magnesium 2 GM/50 ML(in water) 2 GM in Premix 1 BAG IVPB SCH (09:00)
[2023-04-08] MEDS ORDERED: Megestrol Acetate 40 MG TAB PO SCH (18:00)
[2023-04-08] MEDS: Baclofen 10 MG TAB PO PRN (20:36)
[2023-04-08] MEDS: Atorvastatin Calcium 10 MG TAB PO SCH (20:36)
[2023-04-08 21:20] LABS: Critical Call Chem Troponin I ICU.TNC@2119; Troponin I 7.958 ng/mL (< 0.028)
[2023-04-09 05:03] LABS: #Eosinphils 0.2 thou/uL (0.0-0.7); #Monocytes 0.7 thou/uL (0.11-0.59); #Neutrophils 11.2 thou/uL (1.40-6.50); %Basophils 0.3 % (0.0-1.0); %Eosinophils 1.6 % (0.0-10.0); %Lymphocytes 6.8 % (21.0-51.0); %Monocytes 5.6 % (0.0-10.0); Hematocrit 32.7 % (36.0-47.0); Hemoglobin 10.4 g/dL (12.0-16.0); Mean Corpuscular HGB CONC 31.8 g/dL (32.0-36.0); Mean Corpuscular Hemoglobin 26.1 pg (27.0-31.0); Mean Corpuscular Volume 82.2 fl (78.0-98.0); Mean Platelet Volume 10.4 fL (7.4-10.4); Platelet Count 345 10x3/uL (130-400); Red Blood Cell (RBC) Count 3.98 mill/uL (4.20-5.40); White Blood Cell (WBC) Count 13.3 10x3/uL (4.8-10.8)
[2023-04-09 05:28] LABS: Anion Gap 24 mmol/L (10-20); BUN (Urea Nitrogen) 87 mg/dL (9.8-20.1); Calc. Creatinine Clearance 24 mL/min (70-130); Calcium 9.3 mg/dL (7.8-10.44); Carbon Dioxide 21 mmol/L (23-31); Chloride 100 mmol/L (98-107); Estimated GFR 23; Glucose 242 mg/dL (83-110); Potassium 4.2 mmol/L (3.5-5.1); Sodium 141 mmol/L (136-145)
[2023-04-09] MEDS: HumaLOG 300 UNITS/3 ML VIAL SC PRN ×4 (06:10→21:53)
[2023-04-09] MEDS: Metoprolol Tartrate 50 MG TAB PO SCH ×2 (06:34→21:53)
[2023-04-09] MEDS: Isosorbide Dinitrate 20 MG TAB PO SCH (08:31)
[2023-04-09] MEDS: Docusate 100 MG CAP PO SCH (08:31)
[2023-04-09] MEDS: Sertraline 100 MG TAB PO SCH (08:31)
[2023-04-09] MEDS: Heparin 5,000 UNITS/ML VIAL SC SCH ×2 (08:32→21:53)
[2023-04-09] MEDS: Aspirin 325 MG TAB PO SCH (08:32)
[2023-04-09] MEDS: Ferrous Sulfate 325 MG TAB PO SCH (08:32)
[2023-04-09] MEDS: Megestrol Acetate 40 MG TAB PO SCH ×2 (08:32→21:52)
[2023-04-09] MEDS: Cholecalciferol 1,000 UNITS (25 MCG) TAB PO SCH ×2 (08:32→21:53)
[2023-04-09 09:52] VITALS: BMI 27.8
[2023-04-09 15:21] VITALS: BP 143/75
[2023-04-09] MEDS: Atorvastatin Calcium 10 MG TAB PO SCH (21:53)
[2023-04-09] MEDS: Baclofen 10 MG TAB PO PRN (22:00)
[2023-04-10] MEDS: HumaLOG 300 UNITS/3 ML VIAL SC PRN ×4 (06:24→20:48)
[2023-04-10 07:04] LABS: Anion Gap 16 mmol/L (10-20); BUN (Urea Nitrogen) 85 mg/dL (9.8-20.1); Calc. Creatinine Clearance 27 mL/min (70-130); Carbon Dioxide 26 mmol/L (23-31); Chloride 100 mmol/L (98-107); Estimated GFR 27; Glucose 288 mg/dL (83-110); Potassium 3.6 mmol/L (3.5-5.1); Sodium 138 mmol/L (136-145)
[2023-04-10] MEDS: Aspirin 325 MG TAB PO SCH (09:23)
[2023-04-10] MEDS: Heparin 5,000 UNITS/ML VIAL SC SCH ×2 (09:23→20:47)
[2023-04-10] MEDS: Ferrous Sulfate 325 MG TAB PO SCH (09:23)
[2023-04-10] MEDS: Docusate 100 MG CAP PO SCH (09:23)
[2023-04-10] MEDS: Cholecalciferol 1,000 UNITS (25 MCG) TAB PO SCH ×2 (09:23→20:47)
[2023-04-10] MEDS: Megestrol Acetate 40 MG TAB PO SCH ×2 (09:24→20:47)
[2023-04-10] MEDS: Isosorbide Dinitrate 20 MG TAB PO SCH (09:24)
[2023-04-10] MEDS: Sertraline 100 MG TAB PO SCH (09:24)
[2023-04-10] MEDS: Metoprolol Tartrate 50 MG TAB PO SCH ×2 (09:24→20:47)
[2023-04-10] MEDS: Dapagliflozin Propanediol [Farxiga] 10 MG Tablet PO SCH ×4 (09:25→11:50)
[2023-04-10] MEDS ORDERED: Insulin Glargine 30 UNITS/0.3 ML VIAL SC SCH (12:15)
[2023-04-10] MEDS: Baclofen 10 MG TAB PO PRN (20:47)
[2023-04-10] MEDS: Atorvastatin Calcium 10 MG TAB PO SCH (20:47)
[2023-04-10] MEDS: Acetaminophen 325 MG TAB PO PRN (21:23)
[2023-04-11] MEDS: HumaLOG 300 UNITS/3 ML VIAL SC PRN ×3 (07:52→18:28)
[2023-04-11] MEDS ORDERED: Alogliptin 6.25 MG TAB PO SCH (09:00)
[2023-04-11] MEDS: Docusate 100 MG CAP PO SCH (09:01)
[2023-04-11] MEDS: Cholecalciferol 1,000 UNITS (25 MCG) TAB PO SCH ×2 (09:01→21:09)
[2023-04-11] MEDS: Aspirin 325 MG TAB PO SCH (09:01)
[2023-04-11] MEDS: Ferrous Sulfate 325 MG TAB PO SCH (09:01)
[2023-04-11] MEDS: Heparin 5,000 UNITS/ML VIAL SC SCH ×2 (09:01→21:10)
[2023-04-11] MEDS: Megestrol Acetate 40 MG TAB PO SCH ×2 (09:02→21:10)
[2023-04-11] MEDS: Dapagliflozin Propanediol [Farxiga] 10 MG Tablet PO SCH (09:02)
[2023-04-11] MEDS: Sertraline 100 MG TAB PO SCH (09:02)
[2023-04-11] MEDS: Insulin Glargine 30 UNITS/0.3 ML VIAL SC SCH (09:02)
[2023-04-11] MEDS: Isosorbide Dinitrate 20 MG TAB PO SCH (09:02)
[2023-04-11] MEDS: Metoprolol Tartrate 50 MG TAB PO SCH ×2 (09:02→21:11)
[2023-04-11 11:22] LABS: Anion Gap 18 mmol/L (10-20); BUN (Urea Nitrogen) 91 mg/dL (9.8-20.1); Calc. Creatinine Clearance 28 mL/min (70-130); Calcium 8.3 mg/dL (7.8-10.44); Carbon Dioxide 21 mmol/L (23-31); Chloride 98 mmol/L (98-107); Estimated GFR 27; Potassium 3.7 mmol/L (3.5-5.1); Sodium 133 mmol/L (136-145)
[2023-04-11 11:26] LABS: Critical Call Chemistry NUR.BM6@1126; Glucose 504 mg/dL (83-110)
[2023-04-11] MEDS ORDERED: Insulin Glargine 30 UNITS/0.3 ML VIAL SC SCH (21:00)
[2023-04-11] MEDS: Atorvastatin Calcium 10 MG TAB PO SCH (21:10)
[2023-04-12] MEDS ORDERED: Furosemide 40 MG (4 mL) VIAL ONE (04:00)
[2023-04-12] MEDS ORDERED: Furosemide 20 MG (2 mL) VIAL SLOW IVP SCH (04:15)
[2023-04-12 07:22] LABS: Anion Gap 19 mmol/L (10-20); BUN (Urea Nitrogen) 72 mg/dL (9.8-20.1); Calc. Creatinine Clearance 28 mL/min (70-130); Calcium 9.6 mg/dL (7.8-10.44); Carbon Dioxide 23 mmol/L (23-31); Chloride 99 mmol/L (98-107); Estimated GFR 28; Glucose 220 mg/dL (83-110); Potassium 3.6 mmol/L (3.5-5.1); Sodium 137 mmol/L (136-145)
[2023-04-12 08:15] VITALS: TEMP 97.1
[2023-04-12] MEDS: Ferrous Sulfate 325 MG TAB PO SCH (08:31)
[2023-04-12] MEDS: Cholecalciferol 1,000 UNITS (25 MCG) TAB PO SCH (08:31)
[2023-04-12] MEDS: Insulin Glargine 30 UNITS/0.3 ML VIAL SC SCH (08:31)
[2023-04-12] MEDS: Aspirin 325 MG TAB PO SCH (08:31)
[2023-04-12] MEDS: Docusate 100 MG CAP PO SCH (08:31)
[2023-04-12] MEDS: Heparin 5,000 UNITS/ML VIAL SC SCH (08:31)
[2023-04-12] MEDS: Sertraline 100 MG TAB PO SCH (08:32)
[2023-04-12] MEDS: Isosorbide Dinitrate 20 MG TAB PO SCH (08:32)
[2023-04-12] MEDS: Metoprolol Tartrate 50 MG TAB PO SCH (08:32)
[2023-04-12] MEDS: Megestrol Acetate 40 MG TAB PO SCH (08:32)
[2023-04-12] MEDS: Dapagliflozin Propanediol [Farxiga] 10 MG Tablet PO SCH (08:33)
== END 2023-04-12 14:52 | disposition home health service (06) | DRG 682 ==
LOC: ERS 15:38 → ERHOLD 20:49 → SURG B 21:33 → CCU 04-06 07:23 → IMCU/EMU 04-09 00:02
PROVIDERS: ADMIT Student in an Organized Health Care Education/Training Program; ATTEND Family Medicine
DX: N17.9 Acute kidney failure, unspecified (principal); I21.4 Non-ST elevation (NSTEMI) myocardial infarction; I50.43 Acute on chronic combined systolic (congestive) and diastolic (congestive) heart failure; J96.01 Acute respiratory failure with hypoxia; E87.20 Acidosis, unspecified; I69.951 Hemiplegia and hemiparesis following unspecified cerebrovascular disease affecting right dominant side; R64 Cachexia; I13.2 Hypertensive heart and chronic kidney disease with heart failure and with stage 5 chronic kidney disease, or end stage renal disease; E87.5 Hyperkalemia; Z88.8 Allergy status to other drugs, medicaments and biological substances; I48.91 Unspecified atrial fibrillation; Z90.49 Acquired absence of other specified parts of digestive tract; Z98.890 Other specified postprocedural states; Z90.710 Acquired absence of both cervix and uterus; Z91.048 Other nonmedicinal substance allergy status; Z79.82 Long term (current) use of aspirin; Z79.899 Other long term (current) drug therapy; Z79.84 Long term (current) use of oral hypoglycemic drugs; E86.0 Dehydration; D72.829 Elevated white blood cell count, unspecified; E11.22 Type 2 diabetes mellitus with diabetic chronic kidney disease; D63.1 Anemia in chronic kidney disease; I69.920 Aphasia following unspecified cerebrovascular disease; Z68.27 Body mass index [BMI] 27.0-27.9, adult; Z79.4 Long term (current) use of insulin; Z79.01 Long term (current) use of anticoagulants; N18.5 Chronic kidney disease, stage 5
CPT/HCPCS: 36415; 36416; 71045; 74176; 76770; 80048; 80053; 82607; 82805; 83735; 84100; 84484; 85025; 87040; 93005; 93010; 93306; 96361; 96365; 96366; 96375; 96376; J0613; J1644; J1650; J1815; J1940; J2272; J2405; J3475; J7070; J7999; S0179

== ENCOUNTER 2023-05-02 11:49 | Emergency (ER) | payer MEDICARE ==
[2023-05-02 12:51] LABS: #Eosinphils 0.3 thou/uL (0.0-0.7); #Monocytes 0.7 thou/uL (0.11-0.59); #Neutrophils 4.3 thou/uL (1.40-6.50); %Basophils 0.5 % (0.0-1.0); %Eosinophils 4.8 % (0.0-10.0); %Lymphocytes 14.6 % (21.0-51.0); %Monocytes 11.2 % (0.0-10.0); %Neutrophils 68.4 % (42.0-75.0); Hematocrit 31.1 % (36.0-47.0); Hemoglobin 9.5 g/dL (12.0-16.0); Mean Corpuscular HGB CONC 30.5 g/dL (32.0-36.0); Mean Corpuscular Hemoglobin 27.1 pg (27.0-31.0); Mean Corpuscular Volume 88.9 fl (78.0-98.0); Mean Platelet Volume 10.5 fL (7.4-10.4); Platelet Count 231 10x3/uL (130-400); RBC Distribution Width 19.7 % (11.5-14.5); White Blood Cell (WBC) Count 6.3 10x3/uL (4.8-10.8)
[2023-05-02 13:05] LABS: Prothrombin Time 13.5 sec (12.0-14.7)
[2023-05-02 13:20] LABS: ALT (SGPT) 11 U/L (8-55); AST (SGOT) 15 U/L (5-34); Albumin 3.3 g/dL (3.4-4.8); Alkaline Phosphatase 66 U/L (40-110); Anion Gap 15 mmol/L (10-20); BUN (Urea Nitrogen) 41 mg/dL (9.8-20.1); Bilirubin, Total 0.3 mg/dL (0.2-1.2); Calc. Creatinine Clearance 0 mL/min (70-130); Calcium 8.9 mg/dL (7.8-10.44); Carbon Dioxide 14 mmol/L (23-31); Chloride 115 mmol/L (98-107); Estimated GFR 29; Globulin 2.8 g/dL (2.4-3.5); Glucose 84 mg/dL (83-110); Lipase 67 U/L (8-78); Protein, Total 6.1 g/dL (5.8-8.1); Sodium 139 mmol/L (136-145)
[2023-05-02 13:30] LABS: Troponin I 0.107 ng/mL (< 0.028)
[2023-05-02] MEDS ORDERED: Furosemide 40 MG (4 mL) VIAL ONE (15:09)
[2023-05-02 16:07] LABS: Calcium, Ionized (venous) 1.16 mmol/L (1.16-1.32); Chloride (VBG) 115 mmol/L (98-106); Hematocrit-VBG 32 % (36.0-47.0); Sodium 141 mmol/L (133-146); pH (venous) 7.302 (7.32-7.43)
[2023-05-05 10:05] LABS: Actual Bicarbonate (HCO3v) 14.1 mEq/L (22-28)
== END 2023-05-02 15:54 | disposition home or self-care (01) ==
LOC: ERS 11:49
DX: I11.0 Hypertensive heart disease with heart failure (principal); I50.9 Heart failure, unspecified; R53.1 Weakness; I48.91 Unspecified atrial fibrillation; I48.92 Unspecified atrial flutter; E11.9 Type 2 diabetes mellitus without complications; Z79.82 Long term (current) use of aspirin; Z86.73 Personal history of transient ischemic attack (TIA), and cerebral infarction without residual deficits
CPT/HCPCS: 36415; 70450; 71045; 80053; 82805; 83605; 83690; 83880; 84145; 84484; 85025; 85610; 85730; 93005; 94760; 96361; 96374; J1940

== ENCOUNTER 2023-05-23 02:33 | Emergency (ER) | payer MEDICARE ==
[2023-05-23 03:55] LABS: #Eosinphils 0.2 thou/uL (0.0-0.7); #Monocytes 0.6 thou/uL (0.11-0.59); #Neutrophils 9.6 thou/uL (1.40-6.50); %Basophils 0.4 % (0.0-1.0); %Eosinophils 1.8 % (0.0-10.0); %Lymphocytes 4.6 % (21.0-51.0); %Neutrophils 87.6 % (42.0-75.0); Hematocrit 31.6 % (36.0-47.0); Hemoglobin 9.9 g/dL (12.0-16.0); Mean Corpuscular HGB CONC 31.3 g/dL (32.0-36.0); Mean Corpuscular Volume 89.3 fl (78.0-98.0); Mean Platelet Volume 10.5 fL (7.4-10.4); Platelet Count 274 10x3/uL (130-400); RBC Distribution Width 18.9 % (11.5-14.5); Red Blood Cell (RBC) Count 3.54 mill/uL (4.20-5.40)
[2023-05-23 04:20] LABS: ALT (SGPT) 42 U/L (8-55); AST (SGOT) 51 U/L (5-34); Albumin 3.6 g/dL (3.4-4.8); Alkaline Phosphatase 76 U/L (40-110); Anion Gap 20 mmol/L (10-20); BUN (Urea Nitrogen) 53 mg/dL (9.8-20.1); Bilirubin, Total 0.4 mg/dL (0.2-1.2); Calc. Creatinine Clearance 0 mL/min (70-130); Calcium 9.4 mg/dL (7.8-10.44); Carbon Dioxide 16 mmol/L (23-31); Chloride 108 mmol/L (98-107); Estimated GFR 27; Globulin 3.2 g/dL (2.4-3.5); Glucose 212 mg/dL (83-110); Potassium 4.5 mmol/L (3.5-5.1); Protein, Total 6.8 g/dL (5.8-8.1); Sodium 139 mmol/L (136-145)
[2023-05-23 04:23] LABS: Troponin I 0.069 ng/mL (< 0.028)
[2023-05-23] MEDS ORDERED: Furosemide 40 MG (4 mL) VIAL ONE (05:30)
== END 2023-05-23 06:05 | disposition home or self-care (01) ==
LOC: ERS 02:33
DX: I11.0 Hypertensive heart disease with heart failure (principal); I50.9 Heart failure, unspecified; R09.02 Hypoxemia; E11.9 Type 2 diabetes mellitus without complications; I48.91 Unspecified atrial fibrillation; Z79.84 Long term (current) use of oral hypoglycemic drugs; Z79.01 Long term (current) use of anticoagulants; Z79.899 Other long term (current) drug therapy; Z79.82 Long term (current) use of aspirin
CPT/HCPCS: 36415; 71045; 80053; 83880; 84484; 85025; 93005; 96374; J1940